=== PATIENT | male | born 1975 | race Caucasian/White ===

== ENCOUNTER 2020-10-23 07:12 | Emergency (ER) | payer OTHER ==
[2020-10-23] MEDS ORDERED: Morphine 4 MG/ML VIAL ONE (07:39)
[2020-10-23] MEDS ORDERED: Ondansetron PF 4 MG/2 ML Vial ONE ×2 (07:39→09:29)
[2020-10-23 07:52] LABS: #Basophils 0.1 thou/uL (0.0-0.2); #Eosinphils 0.1 thou/uL (0.0-0.7); #Lymphocytes 1.3 thou/uL (1.20-3.40); #Monocytes 0.5 thou/uL (0.11-0.59); #Neutrophils 4.4 thou/uL (1.40-6.50); %Basophils 1.1 % (0.0-1.0); %Eosinophils 1.1 % (0.0-10.0); %Lymphocytes 20.9 % (21.0-51.0); %Monocytes 7.5 % (0.0-10.0); %Neutrophils 69.5 % (42.0-75.0); Hemoglobin 16.5 g/dL (14.0-18.0); Mean Corpuscular HGB CONC 34.2 g/dL (32.0-36.0); Mean Corpuscular Hemoglobin 31.3 pg (27.0-31.0); Mean Corpuscular Volume 91.5 fL (78.0-98.0); Mean Platelet Volume 8.3 fL (7.4-10.4); Platelet Count 250 thou/uL (130-400); Red Blood Cell (RBC) Count 5.28 mill/uL (4.70-6.10); White Blood Cell (WBC) Count 6.3 thou/uL (4.8-10.8)
[2020-10-23 08:10] LABS: ALT (SGPT) 43 U/L (8-55); AST (SGOT) 24 U/L (5-34); Albumin 4.3 g/dL (3.5-5.0); Alkaline Phosphatase 70 U/L (40-110); Anion Gap 14 mmol/L (10-20); BUN (Urea Nitrogen) 11 mg/dL (8.9-20.6); Bilirubin, Total 0.8 mg/dL (0.2-1.2); Calc. Creatinine Clearance 0 mL/min (70-130); Calcium 8.9 mg/dL (7.8-10.44); Carbon Dioxide 24 mmol/L (22-29); Chloride 106 mmol/L (98-107); Glucose 93 mg/dL (70-105); Lipase 23 U/L (8-78); Potassium 3.7 mmol/L (3.5-5.1); Protein, Total 7.3 g/dL (6.0-8.3); Sodium 140 mmol/L (136-145)
[2020-10-23 09:36] LABS: Bilirubin Negative (Negative); Blood, Urine Negative (Negative); Clarity Clear (Clear); Glucose, Urine (Dipstick) Normal (Negative); Ketone, Urine Negative (Negative); Leukocyte Negative Leu/uL (Negative); Nitrite Negative (Negative); Protein, Urine (Dipstick) Negative (Neg-Trace); Specific Gravity, Urine 1.012 (1.002-1.036); Urobilinogen Normal mg/dL (Less than 2)
[2020-10-23] MEDS ORDERED: Iopamidol-370 76% 500 ML 1 ML ONE (11:48)
[2020-10-23 17:59] LABS: SARS-CoV-2 PCR by NAA Not Detected (NotDetected)
== END 2020-10-23 11:22 | disposition home or self-care (01) ==
LOC: ERS 07:12
DX: R10.12 Left upper quadrant pain (principal); R10.32 Left lower quadrant pain; R11.2 Nausea with vomiting, unspecified; Z20.822 Contact with and (suspected) exposure to COVID-19; M06.9 Rheumatoid arthritis, unspecified
CPT/HCPCS: 71045; 74177; 80053; 81003; 83690; 84484; 85025; 87635; 93005; 96374; 96375; 96376; J2270; J2405; Q9967; U0003; U0005

== ENCOUNTER 2025-08-04 08:05 | Day surgery (SDC) | payer BC ==
[2025-08-04] MEDS ORDERED: Acetaminophen 500 MG TAB ONE ×2 (09:18→09:19)
[2025-08-04] MEDS ORDERED: diphenhydrAMINE 50 MG/ML VIAL ONE (09:18)
[2025-08-04] MEDS: Acetaminophen 500 MG TAB PO SCH (09:20)
[2025-08-04] MEDS: diphenhydrAMINE 50 MG/ML VIAL IVP SCH (09:21)
[2025-08-04 15:50] VITALS: BP 142/89; TEMP 97.9
== END 2025-08-04 15:06 | disposition home or self-care (01) ==
LOC: ONC/OP 08:05
PROVIDERS: ATTEND Internal Medicine Rheumatology
DX: M05.79 Rheumatoid arthritis with rheumatoid factor of multiple sites without organ or systems involvement (principal)
CPT/HCPCS: 96367; 96413; 96415; J1200; J2919; J7030; Q5119

== ENCOUNTER 2025-08-18 08:26 | Day surgery (SDC) | payer BC ==
[2025-08-18] MEDS ORDERED: Acetaminophen 500 MG TAB ONE (08:32)
[2025-08-18] MEDS ORDERED: diphenhydrAMINE 50 MG/ML VIAL ONE (08:33)
[2025-08-18] MEDS: Acetaminophen 500 MG TAB PO SCH (08:36)
[2025-08-18] MEDS: diphenhydrAMINE 50 MG/ML VIAL IVP SCH (09:16)
[2025-08-18 12:09] VITALS: TEMP 97.8
[2025-08-18 13:34] VITALS: BP 150/84
== END 2025-08-18 13:32 | disposition home or self-care (01) ==
LOC: ONC/OP 08:26
PROVIDERS: ATTEND Internal Medicine Rheumatology
DX: M05.79 Rheumatoid arthritis with rheumatoid factor of multiple sites without organ or systems involvement (principal); Z88.1 Allergy status to other antibiotic agents; Z88.8 Allergy status to other drugs, medicaments and biological substances
CPT/HCPCS: 96375; 96413; 96415; J1200; J2919; J7030; Q5119